=== PATIENT | female | born 1970 | race Two or more races ===

== ENCOUNTER 2021-08-12 07:58 | Outpatient (CLI) | payer OTHER | END 2021-08-12 12:07 | disposition home or self-care (01) | LOC: RX STUDY 07:58 | PROVIDERS: ATTEND Internal Medicine Gastroenterology | DX: K59.00 Constipation, unspecified (principal); C18.0 Malignant neoplasm of cecum; K56.600 Partial intestinal obstruction, unspecified as to cause; K56.609 Unspecified intestinal obstruction, unspecified as to partial versus complete obstruction ==